=== PATIENT | male | born 1950 | race Caucasian/White ===

== ENCOUNTER → 2017-01-01 | Outpatient (CLI) | payer OTHER, BC ==
[~2017-01-01] VITALS: Ht 180.3 cm; Wt 88.5 kg
[~2017-01-01] MED LIST: ATORVASTATIN CA40 MG PO; CALCIUM 600 +1 EAC1 PO; COZAAR 50 MG TA50 M2 PO; CREON DR 36,001 EACH PO; LUPRON DEPOT11.25 MG IM; NOVOLOG100 UNIT/1 SQ; OMEPRAZOLE40 MG PO; VITAMIN D 5050000 I1 PO; XTANDI40 MG PO
[2017-01-01 07:51] VITALS: BP 105/61
[2017-01-01 08:50] VITALS: BP 159/90
[2017-01-01 09:04] VITALS: BP 145/87
[2017-01-01 09:06] VITALS: BP 148/78
[2017-01-01 09:15] VITALS: BP 136/90
== END ==
LOC: CAT 07:13
DX: M71.38 Other bursal cyst, other site (principal)